=== PATIENT | male | born 1950 | race Caucasian/White ===

== ENCOUNTER → 2018-07-20 08:43 | Outpatient (CLI) | payer OTHER, SELFPAY ==
--- NOTE | 2018-07-20 | DI.RAD.S_ITS ---
PROCEDURE: FL KNEE INJECTION MR/CT RT INDICATIONS: Unspecified internal derangement of right knee TECHNIQUE: The indications, alternatives, benefits, risks, and complications of the procedure were explained to the patient. Written informed consent was obtained and placed in the chart. The knee was examined fluoroscopically, and a site chosen for knee joint injection. The skin was prepped and draped in a sterile fashion, and 1% Lidocaine infiltrated from the skin down to the articular surface. A hypodermic needle was then introduced into the joint and iodinated contrast media was instilled to confirm the intra-articular needle tip placement. This was followed by approximately 50 mL dilute solution of a gadolinium containing MR contrast agent. The needle was removed and a bandage was applied. An Jorge wrap was then applied around the knee joint to keep the contrast from collecting in the suprapatellar recess. The patient experienced no complications throughout the procedure and left the fluoroscopic suite in no apparent distress. FINDINGS: Single fluoroscopic spot image demonstrates intra-articular location to injected iodinated contrast. IMPRESSION: Successful fluoroscopically guided administration of dilute Gadolinium solution into the knee joint for MR arthrogram. Dictated by: Roberth Richter M.D. on 07/20/2018 at 12:02 Approved by: Roberth Richter M.D. on 07/20/2018 at 12:02
--- NOTE | 2018-07-20 | DI.MRI.S_ITS ---
PROCEDURE: MR KNEE RT W CON INDICATIONS: Unspecified internal derangement of right knee TECHNIQUE: After the administration of 50 mL of dilute intra-articular Gadolinium contrast, sagittal T1 spin echo with fat saturation and PD fast spin echo with fat saturation, coronal T1 spin echo with and without fat saturation, coronal T2 fast spin echo with fat saturation, axial PD fast spin echo with fat saturation through the knee. COMPARISON: None. FINDINGS: Image quality: Excellent. Menisci: Lateral meniscus appears grossly intact, with mild myxoid degeneration. There is very little medial meniscal body substance identified suggestive of macerated tear versus postoperative changes. No definite intrasubstance tear linear signal intensity within the anterior and posterior horn remnants to suggest recurrent tear. Cruciate ligaments: Marked thickening of the anterior cruciate ligament with internal heterogeneous signal changes. The posterior cruciate ligament appears intact. Medial structures: The medial collateral ligament appears intact. The posterior oblique ligament, semimembranosus tendon insertions, oblique popliteal ligament, and meniscocapsular junction appear intact. Visualized portions of the pes anserinus tendons appear normal. No abnormal bursal fluid. Lateral structures: The lateral collateral ligament, long and short heads of the biceps femoris tendon appear intact. The popliteus tendon appears normal; the popliteofibular ligament appears intact. The posterosuperior and anteroinferior popliteomeniscal fascicles appear intact. The arcuate and fabellofibular ligaments appear intact around the lateral inferior geniculate artery. Iliotibial band appears normal. Anterior structures: The quadriceps tendon appears intact. There is diffuse patellar tendinopathy with adjacent soft tissue edema. Patellar alignment is normal. No femoral trochlear dysplasia or ventral trochlear prominence. No edema in the infrapatellar fat pad. Bone and cartilage: No focal marrow contusion or discrete low signal fracture line. Within the medial compartment, there are areas of focal -thickness loss of the femoral and tibial articular cartilage Within the lateral compartment, diffuse partial thickness loss of the femoral articular cartilage. There is also partial-thickness 2 mm areas of central tibial articular cartilage loss. Within the patellofemoral compartment, diffuse partial thickness loss of the femoral trochlear and patellar articular cartilage. Joint space: Virgen's cyst measuring 5-6 cm. No definite intra-articular loose bodies identified. IMPRESSION: Poor visualization of the medial meniscal body presumably postoperative changes versus chronic macerated tear. No definite recurrent meniscal tear identified. Marked thickening and internal signal changes involving the anterior cruciate ligament suggestive of chronic partial rupture/sprain versus advanced degree degeneration. Please correlate with clinical exam findings. Diffuse patellar tendinopathy with adjacent soft tissue edema. Severe degenerative joint disease, most pronounced within the medial compartment where there are areas of full-thickness articular cartilage loss. Virgen's cyst. Dictated by: Roberth Richter M.D. on 07/20/2018 at 13:48 Approved by: Roberth Richter M.D. on 07/20/2018 at 14:03
== END ==
PROVIDERS: Family Provider Family Medicine; PCP Family Medicine; Visit Provider Orthopaedic Surgery
DX: M23.91 Unspecified internal derangement of right knee (principal); M67.863 Other specified disorders of tendon, right knee; M25.461 Effusion, right knee; M17.11 Unilateral primary osteoarthritis, right knee; M71.21 Synovial cyst of popliteal space [Baker], right knee
CPT/HCPCS: 27369; 73722; 77002

== ENCOUNTER 2019-01-23 06:06 | Day surgery (SDC) | payer OTHER, SELFPAY ==
[2019-01-03 13:45] VITALS: BMI 27.1
[2019-01-23] VITALS (13 sets, daily range): BP systolic 102–140; BP diastolic 61–82; PULSE 63–80; RESP 12–20; TEMP 36.2–36.9; O2SAT 93–100; BMI 26.8
--- NOTE | 2019-01-23 06:31 | DI.RAD.S_ITS ---
PROCEDURE: XR KNEE RT 1TO2V INDICATIONS: right tKA TECHNIQUE: 2 view(s) of the knee acquired. COMPARISON: None. FINDINGS: Bones: Patient is status post knee joint arthroplasty. Hardware components are in expected positions. Visualized bony structures are intact. Soft tissues: Overlying postoperative changes are noted. IMPRESSION: Status post right total knee arthroplasty. Dictated by: Valorie Aguilera M.D. on 01/23/2019 at 11:19 Approved by: Valorie Aguilera M.D. on 01/23/2019 at 11:19
[2019-01-23] MEDS: LACTATED RINGERS 1,000 ML 42 ML IV (07:00)
[2019-01-23] MEDS: PREGABALIN 75 MG CAPSULE PO (07:07)
[2019-01-23] MEDS: ACETAMINOPHEN 325 MG TABLET 975 MG PO (07:07)
[2019-01-23] MEDS: CELECOXIB 200 MG CAPSULE PO (07:08)
--- NOTE | 2019-01-23 07:39 | PM.PREOP ---
Pre-operative Note Interval Note History & Physical reviewed/Exam performed by Physician: Yes Changes to H&P: No
--- NOTE | 2019-01-23 07:40 | P.OP_ITS ---
Operative Date/Time/Diagnoses Date of procedure: 01/23/19 Time of procedure: 09:17 Pre-op diagnosis: Right knee osteoarthritis Post-op diagnosis: same Procedure & Clinicians Procedure: Right total knee arthroplasty Same procedure as scheduled: Yes Indications: The patient presents today for total knee arthroplasty after failure of conservative treatment. The nature of the procedure including the risks and benefits, alternatives, postoperative course and expected outcome were discussed and all questions answered. Consent was obtained. Operative site confirmed and marked. Surgeon: Ross Mosley Patient Services Clerk: Yonatan Guzman Anesthesia Type: General, Peripheral nerve block and Local Operative Notes Findings: Severe osteoarthritis with mild valgus alignment. Closure Type: primary Specimen(s): none sent Prosthetic devices, grafts, tissues, transplants, or devices: Velez [employer]hew Phyllis BCS: 7 femoral component, 7 tibial component, 9 mm BCS polyethylene tray and 32 x 9 mm round patella Applied: implant(s) Estimated Blood Loss (mL): 10 Blood products transfused: none Tourniquet time (min): 51 Procedure in detail: The patient was taken to the operative suite and placed under general anesthesia with an adductor nerve block. The patient was given prophylactic antibiotics prior to surgery. The patient was also given tranexamic acid, 1 g, just prior to surgery for postoperative hemostasis. The lateral knee was prepped and the joint injected with 20 mL of 1% Lidocaine with epinephrine. The knee was then prepped and draped in usual sterile fashion. The leg was exsanguinated with an Esmarch dressing and the tourniquet raised to 250 torr. A 15 cm anterior incision was made. Next a medial trivector arthrotomy was made. The extensor mechanism was marked to ensure accurate repair. Initial exposing dissection was carried out medially and laterally. The knee was then flexed and the intramedullary femoral guide teresa placed. The d istal femoral cut was made in 6 ? of valgus at the +1 position. The femoral size was measured and the appropriate cutting block was then placed and the anterior, posterior and chamfer cuts made. The intramedullary tibial alignment teresa was then placed. The guide was set to remove approximately 9 mm from the less affected medial side. The proximal tibial cut was then made with an oscillating saw. All meniscus and bony debris was then removed. Posterior femoral osteophytes removed with a curved osteotome. Flexion extension gaps were checked. No specific balancing was required other than routine exposure and removal of osteophytes. The soft tissues were then injected with a combination of 20 mL of half percent Marcaine with epinephrine and 20 mL of Exparel. The trial components were then placed. The knee was then extended and the patellar thickness was measured and a cut made removing approximately 9 mm of bone. The patella was then sized and drilled. Some excess lateral bone was excised and the patellofemoral ligament released. The knee went into full extension and flexion beyond 120?. There was excellent medial-lateral balance throughout motion. Patellar tracking was excellent. The trial components were removed and the knee was cleansed with Pulsavac irrigation and dried. The final components were cemented with high viscosity vacuum mixed bone cement with antibiotics. The joint was filled with a dilute Betadine solution. The knee was held in extension and the patellar clamped until the cement was adequately cured. The knee was then irrigated. The extensor mechanism was closed with 5 interrupted #1 Vicryl sutures and a running Quill suture at approximately 90 degrees of flexion. The joint was then injected with a combination of 1 g of tranexamic acid and 20 mL of quarter percent Marcaine with epinephrine. The subcutaneous tissue was closed with 2 0 Vicryl. The skin was closed with freddie and surgical adhesive. An Aquacel dressing and Jorge wrap were then applied. The patient tolerated the procedure well and was returned to recovery room in good condition. Complications: none Post-operative Condition: stable Disposition: PACU Plan for aftercare: [facility] protocol for total knee arthroplasty.
[2019-01-23] MEDS: CEFAZOLIN 2 GM/100 ML FROZ.PIGGY IV ×2 (07:52→16:05)
--- NOTE | 2019-01-23 07:55 | SUR.PREOP ---
Block start time [0738] . Monitoring initiated and maintained throughout procedure. Medications given per anesthesiologist. O2 given by his instructions. Patient remained stable throughout procedure, no adverse reactions noted. Block end time [0747]. Pt left room instable condition.
--- NOTE | 2019-01-23 08:20 | SUR.OPER ---
Supine on padded OR bed. Pillow under head, arms secured on padded armboards <90 degree abduction. Safety belt across torso. Non-operative leg secured with tape over blanket over lower leg. Operative leg secured in DeMayo/Tomas positioner. Foam padded brace at thigh of operative leg.
[2019-01-23] MEDS: BUPIVACAINE 0.25% W/ EPI (PF) 20 ML, TRANEXAMIC ACID 1,000 MG, SODIUM CHLORIDE 0.9% 10 ML INJ (08:26)
[2019-01-23] MEDS: BUPIVACAINE 0.25% W/ EPI (PF) 40 ML, BUPIVACAINE LIPOSOME 266 MG, SODIUM CHLORIDE 0.9% ... INJ (08:27)
[2019-01-23] MEDS: LIDOCAINE 1% W/EPI 20 ML INJ (08:28)
[2019-01-23] MEDS: SODIUM CHLORIDE IRRIG SOLUTION 250 ML, POVIDONE-IODINE SPONGE STICKS 1 APPLIC IRR (08:29)
[2019-01-23] MEDS: TRANEXAMIC ACID 1,000 MG VIAL 1000 MG IV (08:31)
[2019-01-23] MEDS: fentaNYL 100 MCG/2 ML INJ IV (09:53)
[2019-01-23] MEDS: ASPIRIN EC 81 MG TABLET PO ×2 (10:42→21:33)
[2019-01-23] MEDS: OXYCODONE IR 10 MG TABLET PO ×3 (10:42→21:40)
[2019-01-23] MEDS: LACTATED RINGERS 1,000 ML 125 ML IV ×2 (10:42→18:56)
[2019-01-23] MEDS: IBUPROFEN 400 MG TABLET PO ×4 (10:42→21:33)
[2019-01-23] MEDS: FOLIC ACID 1 MG TABLET PO ×2 (10:43→21:33)
--- NOTE | 2019-01-23 10:50 | CM.DANOTE ---
DCP: Case received, EMR reviewed and met with patient. , Kendra, also at bedside. Introduced self and role. Was able to obtain baseline activity level information from patient. DCP assessment completed with information currently available. Patient is a 68 year old male who admitted early this morning to the care of the orthopedic team. PCP: Dr. Knowles. Payer: confirmed: [facility]. Patient came to the hospital for a surgical procedure. He had a right total knee arthroplasty. Patient has had history of osteoarthritis. Met with patient in his room, he had recently come back from recovery post surgery. He is alert and oriented, , Kendra, present in room. Patient stated that he did not use a cane or walker prior to surgery, and it was sometimes hard for him to get up, especially if sitting on the floor. He is independent, resides in [place] with his . He has outpatient P.T. set up. P: DCP to continue to follow. Patient has not yet worked with P.T. team. As long as medically stable, and therapy clears him, he should be able to go home. Connie Mcmahan RN/Travel Registered Nurse [facility]
--- NOTE | 2019-01-23 11:07 | P.PCN_ITS ---
Procedures Date/Time Date of procedure: 01/23/19 Time of procedure: 07:31 Nerve Block Time out performed: Yes Local anesthetic used: lidocaine 1% (w/ epi 5mL + 15mL 0.5opivacaine) Location of anesthetic used: adductor canal Amount of anesthesia used (mL): 20 Nerve blocks: femoral (adductor canal) Procedure successful: Yes Patient tolerated procedure: well Complications: none Additional comments: Adductor canal block for post operative pain management. R/B discussed. Site marked. Consent verified/signed. Standard ASA monitors. NC O2. Chloroprep. Sterile technique. Femoral A/V/N identified medial mid thigh with US. Lidocaine skin wheal. 100mm x 21g Pajunk needle advanced with in-plane US guidance. Negative aspiration. LA injected medial and lateral to femoral artery. Negative aspiration throughout. No pain, no paresthesia with injection. VSS. Tolerated well. To OR.
--- NOTE | 2019-01-23 11:55 | PC.NURSE ---
1015 Pt arrived to room 211 via bed from PACU. Pt is awake, OX3, SCDs on ble. SL. denies pain at this time. at bedside. aquacel drsg to R knee/ bogdan wrap to site, ice pack to R knee as well. 140 IVF infusing now, Pt med for c/o pain, Pt taking in crackers w/the PO med.
--- NOTE | 2019-01-23 13:50 | PT.IIE ---
Current Diagnoses Unilateral primary osteoarthritis, right knee (01/23/19) Surgery Performed Operation Date: 01/23/19 07:45 Actual Procedures p Total Knee Arthroplasty(Right) - Ross Mosley MD Surgical History (Last Updated 01/03/19 @ 14:20 by María Weiss RN) H/O cardiac radiofrequency ablation (Acute ~2013) History of bilateral carpal tunnel release (Acute) Hx of appendectomy (Acute) Hx of arthroscopy of left knee (Acute) Hx of arthroscopy of right knee (Acute ~2013) Hx of bilateral cataract extraction (Acute) Hx of heart artery stent (Acute ~2013) Hx of repair of left rotator cuff (Acute ~2016) Hx of repair of right rotator cuff (Acute ~2008) Status post epidural steroid injection (Acute ~2016) Status post trigger finger release (Acute) Medical History (Last Updated 01/03/19 @ 14:25 by María Weiss RN) Arrhythmia (Acute) CAD (coronary artery disease) (Acute) Hammertoe of right foot (Acute) HLD (hyperlipidemia) (Acute) HTN (hypertension) (Acute) Ileus (Acute ~2004) Low back pain (Acute) Myocardial infarction (Acute ~2013) Osteoarthritis (Acute) PAF (paroxysmal atrial fibrillation) (Acute) Rheumatoid arthritis (Acute) Rupture of left biceps tendon (Acute) Ulcer (Acute) Physical Therapy Inpatient Evaluation/Re-Eval M1 PT/OT-IP Prior Functional Status Start: 01/23/19 17:02 Freq: NEEDED Status: Active Protocol: Document 01/23/19 13:50 AB (Rec: 01/23/19 17:20 AB [id number]) Medical Review Prior Functional Status Medical History Reviewed Yes Communication able to make needs known Mobility and Gait pt stated that he is independent with all mobilities and ambulation without AD Social History Household Members spouse Living Arrangements House Number of Floors (Floors) One Floor Number of Stairs To Enter/Railing? 2 steps with bilateral wide rails and can onlyb hold on to one rail at a time Home Environment Standard Height Toilet,Walk in Shower,Tub/Shower Home Equipment Front Wheel Walker,Straight Cane,Raised Toilet Seat w/ Armrests,Shower Seat with Backrest,Hand Held Shower,Grab Bars Near Toilet Additional Social History Comment pt stated that walk in shower is narrow and shower chair will not fit. pt has a tub shower with shower chair but pt has to climb to get in. M2 PT-IP Current Condition Start: 01/23/19 17:02 Freq: NEEDED Status: Active Protocol: Document 01/23/19 13:50 AB (Rec: 01/23/19 17:20 AB [id number]) Physical Therapy Current Condition Current Condition Evaluation Date 01/23/19 Treatment Diagnosis s/p R TKA; difficulty in walking Onset Date 01/23/19 Weight Bearing Status Weight Bearing Status Weight Bear as Tolerated Allowed Weight Bearing Amount (enter % WBAT RLE or #) (%) M3 PT-IP Subjective Start: 01/23/19 17:02 Freq: NEEDED Status: Active Protocol: Document 01/23/19 13:50 AB (Rec: 01/23/19 17:20 AB [id number]) Subjective Physical Therapy Visit Type Type Initial Evaluation Visit Start Time 13:50 Visit Stop Time 14:34 Total Visit Minutes 44 Number of DIRECTOR STARS Visits 0 Physical Therapy Visit Comments Patient Comments pt agreeable to do PT Therapy Pain Assessment Pain When Pain Assessed At Rest Pain Present Pain Present Pain Reported Location right knee Intensity 1 Scale Used increases to 2/10 with mobility Pain Management Techniques Apply Cold,Re-positioning, Timing of Activity with Medications M4 PT-IP Mobility and Gait Start: 01/23/19 17:02 Freq: NEEDED Status: Active Protocol: Document 01/23/19 13:50 AB (Rec: 01/23/19 17:20 AB [id number]) PT-Bed Mobility Assessment Supine to Sit Supine to Sit Standby Assistance Sit to Supine Sit to Supine Standby Assistance PT-Transfer Assessment Sit to and From Stand Sit to and from Stand Minimal Assistance,1 Person Assistance,Use of Upper Extremities Equipment Transfer Assistive Device Gait Belt,Front Wheeled Walker Orthotic/Prosthetic Devices or Brace: No Comments Mobility Comments pt completed supine to sit SBA . was able to maintain sitting on EOb SBA. completed sit to stand min A and cues. ambulated in room using FWW 20 ft x 2 requiring min A and cues. pt completed sit to supine SBA . positioned in bed. ice pack provided. call light and table placed within reach. Gait Assessment Gait Gait Assistance Required: Minimum Assistance,1 Person Assist Distance (Feet) 20 Able to Maintain Weight Bearing Status Yes During Gait Assistive Devices Assistive Device Gait Belt,Front Wheeled Walker Orthotic/Prosthetic Devices or Brace: No Gait Deviations General Gait Pattern Antalgic,Decreased Stride Length,Decreased Feet Clearance Factors Limiting Gait Function Factors Limiting Gait Function Decreased Activity Tolerance, Decreased Strength,Limited Range of Motion,Pain,Poor Balance,Poor Safety Awareness PT-Balance Assessment Sitting Balance and Reactions Static Sitting Balance Ability Good Dynamic Sitting Balance Ability Good Standing Balance and Reactions Static Standing Balance Ability Fair Dynamic Standing Balance Ability Fair Device Used FWW M5 PT-IP Objective Assessments Start: 01/23/19 17:02 Freq: NEEDED Status: Active Protocol: Document 01/23/19 13:50 AB (Rec: 01/23/19 17:20 AB [id number]) Orientation Orientation/Cognition Level of Alertness Alert Orientation Name,Place,Situation Language Function Ability No Deficits Noted Safety Awareness Understands Safety Issues Memory Description No Deficits Noted Gross Range of Motion Lower Extremity ROM Impairments R knee flexion: ~ 60 deg Strength Lower Extremity Strength Assessment Right Impaired Hip 4-/5 Knee 3+/5 Coordination Assessment Gross Coordination Gross Coordination WNL Sensation Assessment Sensation Gross Sensation WNL Muscle Tone Muscle Tone WNL Yes M6 PT-IP Treatment Start: 01/23/19 17:02 Freq: NEEDED Status: Active Protocol: Document 01/23/19 13:50 AB (Rec: 01/23/19 17:20 AB [id number]) Physical Therapy Treatment Exercises Exercises Quad Sets,Heel Slides Education Education Provided Precautions,Weight Bearing Status,Post-Op Packet,Safety M7 PT-IP Assessment and Plan Start: 01/23/19 17:02 Freq: NEEDED Status: Active Protocol: Document 01/23/19 13:50 AB (Rec: 01/23/19 17:20 AB [id number]) PT Summary Assessment and Plan Potential Rehabilitation Potential Good Status of Condition at Evaluation Stable Summary Impairments Pain,ROM,Strength,Balance, Coordination,Bed Mobility, Transfers,Gait,Activity Tolerance Assessment Summary pt requires min A and cues with mobility and will likely improve during hospital stay. pt plans to go home and spouse to assist him. will conduct caregiver training when appropriat as well as stair climbing training. pt stated that he is scheduled for outpt PT. Goals Bed Mobility Goal Standby Assistance Transfer Goal Standby Assistance,Front Wheeled Walker Gait Goal Standby Assistance,Front Wheel Walker Gait Distance 200 Other Goals up/down 2 steps with 1 rail SBA Days to Meet Goals 5 Frequency of Treatment Frequency Of Treatment Twice a Day Treatment Plan Physical Therapy Treatment Plan Bed Mobility Training,Transfer Training,Gait Training, Therapeutic Exercise,Balance Retraining,Post Op Education, Discharge Planning,Hot or Cold Pack,Neuromuscular Re-ed, Coordination Retraining,Manual Therapy Other Recommendations and Next Treatment ambulation, stair climbing, Focus caregiver training Recommendations To Nursing Amount of Assist Needed 1 Person Assist Discharge Recommendations PT Discharge Recommendations Home with Assistance, Outpatient PT
[2019-01-23] MEDS: ACETAMINOPHEN 325 MG TABLET 650 MG PO ×2 (14:18→21:34)
[2019-01-23] MEDS: ONDANSETRON 4 MG/2 ML INJ IV (16:44)
--- NOTE | 2019-01-23 17:56 | PC.NURSE ---
Addendum entered by Sapna Alston R.N. 01/23/19 23:43: Medicated for right knee pain 5/10. No change in neurovascular status this evening shift. Tele NSR. IV fluids infusing as ordered. BL calf scd's in place. Original Note: Pt awake, alert in bed @ beginning of shift. Spouse present in room. Medicated for pain by float RN, Sherrell. Pt does report to this quality analyst/technical writer feels slightly nauseated s/p oxycodone administration. Bowel tones present. Administered zofran as per emar. Pt takes diet well. States right knee pain 2/10 dull in nature following medication. Ice to right knee. Jorge wrap dry and intact. RLE supported on lengthwise pillow x 1. Palpable pedal pulses BL. BL calf scd's in place. Assist x 1 with walker to stand at bedside and void without difficulty. Has own I.S. at bedside as is [employer] pt.
[2019-01-23] MEDS: hydrOXYzine pamoate 25 MG CAPSULE PO (21:40)
[2019-01-24] MEDS: CEFAZOLIN 2 GM/100 ML FROZ.PIGGY IV (00:17)
[2019-01-24 00:30] VITALS: BP 100/58; PULSE 63; RESP 17; TEMP 36.5; O2SAT 96
[2019-01-24] MEDS: IBUPROFEN 400 MG TABLET PO ×4 (01:21→12:10)
[2019-01-24] MEDS: OXYCODONE IR 10 MG TABLET PO ×3 (01:25→12:09)
[2019-01-24] MEDS: LACTATED RINGERS 1,000 ML 125 ML IV (01:28)
[2019-01-24 04:54] VITALS: PULSE 63; RESP 18; TEMP 36.5; O2SAT 97
[2019-01-24 05:00] VITALS: BP 113/71
[2019-01-24 06:13] LABS: Hematocrit 34.6 % (41-53); Hemoglobin 12.4 g/dL (13.5-17.5)
[2019-01-24] MEDS: ACETAMINOPHEN 325 MG TABLET 650 MG PO (07:58)
[2019-01-24] MEDS: ASPIRIN EC 81 MG TABLET PO (07:58)
[2019-01-24] MEDS: FOLIC ACID 1 MG TABLET PO (07:58)
[2019-01-24 08:00] VITALS: BP 120/72; PULSE 66; RESP 18; TEMP 36.8; O2SAT 99
--- NOTE | 2019-01-24 09:17 | PT.IPTN ---
Current Diagnoses Unilateral primary osteoarthritis, right knee (01/23/19) Surgery Performed Operation Date: 01/23/19 07:45 Actual Procedures p Total Knee Arthroplasty(Right) - Ross Mosley MD Physical Therapy Treatment Note M2 PT-IP Current Condition Start: 01/23/19 17:02 Freq: NEEDED Status: Active Protocol: Document 01/23/19 13:50 AB (Rec: 01/23/19 17:20 AB [id number]) Physical Therapy Current Condition Current Condition Evaluation Date 01/23/19 Treatment Diagnosis s/p R TKA; difficulty in walking Onset Date 01/23/19 Weight Bearing Status Weight Bearing Status Weight Bear as Tolerated Allowed Weight Bearing Amount (enter % WBAT RLE or #) (%) M3 PT-IP Subjective Start: 01/23/19 17:02 Freq: NEEDED Status: Active Protocol: Document 01/24/19 08:53 JULIENNE (Rec: 01/24/19 09:42 JULIENNE [id number]) Subjective Physical Therapy Visit Type Type Treatment Note Visit Start Time 08:53 Visit Stop Time 09:17 Total Visit Minutes 24 Notes Treatment supervised by MERRY Garza. Number of PROCESS IMPROVEMENT ANALYST Visits 1 Physical Therapy Visit Comments Patient Comments pt agreeable to do PT Therapy Pain Assessment Pain When Pain Assessed During Mobility Pain Present Pain Present Pain Reported Location right knee Intensity 6 Scale Used Numeric (1 - 10) Pain Management Techniques Re-positioning,Timing of Activity with Medications M4 PT-IP Mobility and Gait Start: 01/23/19 17:02 Freq: NEEDED Status: Active Protocol: Document 01/24/19 08:53 JULIENNE (Rec: 01/24/19 09:42 JULIENNE [id number]) PT-Bed Mobility Assessment Supine to Sit Supine to Sit Standby Assistance,Head of Bed Elevated Sit to Supine Sit to Supine Standby Assistance Scooting Scooting to Edge of Bed Standby Assistance PT-Transfer Assessment Sit to and From Stand Sit to and from Stand Contact Guard Assistance,1 Person Assistance,Use of Upper Extremities Equipment Transfer Assistive Device Gait Belt,Front Wheeled Walker Orthotic/Prosthetic Devices or Brace: No Transfers Transfer Destination Chair Transfer Technique pt ambulated w/ FWW Transfer Ability Level of Assist Contact Guard Assistance,1 Person Assistance,Use of Upper Extremities Comments Mobility Comments Pt was in bed upon arrival from therapy. Was able to complete sup<>sit w/ HOB elevated and SBA and scooted to EOB SBA, no cues required. CGA for sit<>stand from bed w/ FWW. Pt demonstrated proper technique for stand<>sit in chair and reached back for chair and lowered down slow and controlled w/ CGA and no cues. Pt left in chair w/ all needs in reach. Gait Assessment Gait Gait Assistance Required: Standby Assistance,Contact Guard Assist,1 Person Assist Distance (Feet) 275 Able to Maintain Weight Bearing Status Yes During Gait Assistive Devices Assistive Device Gait Belt,Front Wheeled Walker Orthotic/Prosthetic Devices or Brace: No Gait Deviations General Gait Pattern Antalgic,Decreased Stride Length,Decreased Feet Clearance,Step-to Gait Factors Limiting Gait Function Factors Limiting Gait Function Decreased Activity Tolerance, Decreased Strength,Limited Range of Motion,Pain Comments Gait Comments Pt ambulated from room to stairs and back, totaling ~275 ft w/ FWW and SBA/CGA. Pt initially had step to gait pattern, but when cued for heel-toe walking and quad activation step through was demonstrated. Pts gait pattern progressed to symmetrical step length after ~100 ft. Pt showed proper usage of FWW. Verbalized that his pain was a 1 when just standing and weight bearing, but went up to a 6 after stairs and ambulation. Stair Climbing Assessment Evaluation Level of Assist On Stairs Standby Assistance,Contact Guard Assistance,1 Person Assistance Devices Stair Climbing Assistive Devices Left Railing,Right Railing Technique/Endurance Stair Climbing Direction Ascend and Descend Stair Climbing Technique Step to Step Number of Steps Climbed 3 Stair Climbing Set # Repetitions (reps) 2 Comments Stair Climbing Comments Pt was able to ascend/descend 3 steps x2 w/ SBA/CGA. During the first set, pt used R hand rail and successfully completed stairs, stated that he wanted to try the Left rail and he was able to complete stairs more easily. Min cues prior to stairs for nonsurgical LE acend first, and surgical descend first. Pts was not in attendance for gait and stair training, but pt was not in need of assistance. PT-Balance Assessment Sitting Balance and Reactions Static Sitting Balance Ability Good Dynamic Sitting Balance Ability Good Standing Balance and Reactions Static Standing Balance Ability Good Dynamic Standing Balance Ability Good Device Used FWW M5 PT-IP Objective Assessments Start: 01/23/19 17:02 Freq: NEEDED Status: Active Protocol: Document 01/23/19 13:50 AB (Rec: 01/23/19 17:20 AB [id number]) Orientation Orientation/Cognition Level of Alertness Alert Orientation Name,Place,Situation Language Function Ability No Deficits Noted Safety Awareness Understands Safety Issues Memory Description No Deficits Noted Gross Range of Motion Lower Extremity ROM Impairments R knee flexion: ~ 60 deg Strength Lower Extremity Strength Assessment Right Impaired Hip 4-/5 Knee 3+/5 Coordination Assessment Gross Coordination Gross Coordination WNL Sensation Assessment Sensation Gross Sensation WNL Muscle Tone Muscle Tone WNL Yes M6 PT-IP Treatment Start: 01/23/19 17:02 Freq: NEEDED Status: Active Protocol: Document 01/24/19 08:53 JULIENNE (Rec: 01/24/19 09:42 JULIENNE [id number]) Physical Therapy Treatment Exercises Exercises Heel Slides Education Education Provided Precautions,Weight Bearing Status,Post-Op Packet,Safety M7 PT-IP Assessment and Plan Start: 01/23/19 17:02 Freq: NEEDED Status: Active Protocol: Document 01/24/19 08:53 JULIENNE (Rec: 01/24/19 09:42 JULIENNE [id number]) PT Summary Assessment and Plan Potential Rehabilitation Potential Good Status of Condition at Evaluation Stable Summary Impairments Pain,ROM,Strength,Bed Mobility ,Transfers,Gait,Activity Tolerance Assessment Summary Pt showed improvements w/ both mobility and tolerance to activity as compared to last treatment. SBA for sup<>sit and scooting to EOB. CGA for sit<>stand and stand<>sit w/ FWW, no cues required. Ambulated ~275 ft w/ FWW and CGA, gait pattern improved w/ cues for quad activation, and symmetrical step length. Pt did 2x 3 steps safely w/ use of 1 handrail each time and step to step pattern w/ SBA/ CGA. Pts caregiver was not present, but pt did not need assistance when completing stairs. Pt reported that he felt safe and stable during ambulation and stairs. Pt plans to go home w/ spouse later today when medically stable. Goals Bed Mobility Goal Standby Assistance Transfer Goal Standby Assistance,Front Wheeled Walker Gait Goal Standby Assistance,Front Wheel Walker Gait Distance 200 Other Goals up/down 2 steps with 1 rail SBA Days to Meet Goals 5 Frequency of Treatment Frequency Of Treatment Twice a Day Treatment Plan Physical Therapy Treatment Plan Bed Mobility Training,Transfer Training,Gait Training, Therapeutic Exercise,Balance Retraining,Post Op Education, Discharge Planning,Hot or Cold Pack,Neuromuscular Re-ed, Coordination Retraining,Manual Therapy Other Recommendations and Next Treatment ambulation, stair climbing, Focus caregiver training Recommendations To Nursing Amount of Assist Needed 1 Person Assist Discharge Recommendations PT Discharge Recommendations Home with Assistance, Outpatient PT
--- NOTE | 2019-01-24 09:53 | PM.DS.1 ---
History of Present Illness History of Present Illness Date Patient Seen: 01/24/19 Time Patient Seen: 09:53 Chief complaint: [id number] RT TKA *OPB* Narrative: Patient's pain is well controlled. Denies fever chills. No nausea vomiting. Patient did well with physical therapy. Patient's is home to assist him. Discharge Providers Provider Discharge Date: 01/24/19 Primary care physician: Mayuri Knowles MD Consults: 01/23/19 10:17 Consult to Discharge Planning Routine Comment: Consult to Physical Therapy Evaluate & Treat Comment: Physician Instructions: postop TKA protocol Consult to Respiratory Therapy Evaluate & Treat Comment: Physician Instructions: Evaluate and treat Discharge provider: Yonatan Guzman PA-C Summary Hospital Course Discharge Diagnosis: Status post right total knee arthroplasty secondary to severe right knee osteoarthritis Hospital Course: [place] [address] Operative Note Patient: Rolando Gunn LMR#: [id number] : 8Acct:[id number] Age/Sex: 68 / M Date of Service: 01/23/19 Provider: Ross Mosley MD Operative Date/Time/Diagnoses Date of procedure: 01/23/19 Time of procedure: 09:17 Pre-op diagnosis: Right knee osteoarthritis Post-op diagnosis: same Procedure & Clinicians Procedure: Right total knee arthroplasty Same procedure as scheduled: Yes Indications: The patient presents today for total knee arthroplasty after failure of conservative treatment. The nature of the procedure including the risks and benefits, alternatives, postoperative course and expected outcome were discussed and all questions answered. Consent was obtained. Operative site confirmed and marked. Surgeon: Ross Mosley [employer] Commanding Officer: Yonatan Guzman Anesthesia Type: General, Peripheral nerve block and Local Operative Notes Findings: Severe osteoarthritis with mild valgus alignment. Closure Type: primary Specimen(s): none sent Prosthetic devices, grafts, tissues, transplants, or devices: [employer]hew Phyllis BCS: 7 femoral component, 7 tibial component, 9 mm BCS polyethylene tray and 32 x 9 mm round patella Applied: implant(s) Estimated Blood Loss (mL): 10 Blood products transfused: none Patient admitted to the hospital for right total knee arthroplasty. Patient consented to the same. Patient taken to the operating room yesterday underwent right total knee arthroplasty. Patient back in his room recovering well as in stable condition. Patient worked with physical therapy. Patient able to urinate on his own. Patient will be discharged home today in stable condition. Patient's is home to assist him. Status at Discharge Cognitive/behavioral status at discharge: confused and at baseline, oriented Functional status at discharge: uses cane/walker Overall status at discharge: patient is progressing back to baseline Time Spent with Patient Time spent: Less than 30 minutes Exam Vital Signs (past 8 hours): - 01/24/19 04:54 01/24/19 05:00 01/24/19 08:00 Temperature 97.7 F 98.2 F Pulse Rate 63 66 Respiratory Rate 18 18 Blood Pressure 113/71 120/72 Pulse Oximetry 97 99 Oxygen Delivery Method Room Air Oxygen Flow Rate 0 Objective Labs Result Diagrams: 01/24/19 06:00 Labs: Laboratory Results - last 24 hr 01/24/19 06:00 Hgb 12.4 L Hct 34.6 L Discharge Plan Discharge Plan Patient Disposition: Home Discharge Med Rec/Prescriptions Prescriptions: New aspirin 81 mg Tablet,Delayed Release (Dr/Ec) 81 mg PO BID Qty: 60 RF: 0 hydroxyzine pamoate 25 mg Capsule 25 mg PO Q6HR PRN (Reason: Nausea) Qty: 30 RF: 1 oxycodone 5 mg tablet 5 mg PO Q3H PRN (Reason: pain) Qty: 60 RF: 0 Continued ferrous sulfate [iron] 325 mg (65 mg iron) Tablet 325 mg PO DAILY RF: 0 folic acid 1 mg Tablet 1 mg PO BID RF: 0 Repatha SureClick 140 mg/mL Pen Injector 140 mg SUBCUT Q2W RF: 0 methotrexate 2.5 mg/mL Solution 15 mg PO QWEEK RF: 0 Xeljanz 10 mg Tablet 5 mg PO BID RF: 0 Discontinued aspirin 81 mg Tablet,Delayed Release (Dr/Ec) 81 mg PO DAILY RF: 0 Follow up/Referrals: Ross Mosley MD [Physician] - (1 wk) Discharge Orders: Discharge (Order); Ordered 01/24/19 Ordered By: Yonatan Guzman Provider Discharge Instructions Diet: Diet as Tolerated Activity: WBAT Cold/Heat Therapy: ice as needed Skin/Wound/Dressing Care Report to your healthcare provider any signs of infection, such as:: chills, fever, increased pain, unusual drainage and unusual redness Dressing: keep clean and dry Other wound treatment: per [facility] Discharge Data Primary Care Provider: Mayuri Knowles Attending Provider: Ross Mosley VTE Deep Vein Thrombosis/Pulmonary Embolism Present on Admission: No
--- NOTE | 2019-01-24 09:55 | PM.DS.1 ---
History of Present Illness History of Present Illness Chief complaint: [id number] RT TKA *OPB* Narrative: Patient's pain is well controlled. Denies fever chills. No nausea vomiting. Patient did well with physical therapy. Patient's is home to assist him. Discharge Providers Provider Discharge Date: 01/24/19 Primary care physician: Mayuri Knowles MD Consults: 01/23/19 10:17 Consult to Discharge Planning Routine Comment: Consult to Physical Therapy Evaluate & Treat Comment: Physician Instructions: postop TKA protocol Consult to Respiratory Therapy Evaluate & Treat Comment: Physician Instructions: Evaluate and treat Discharge provider: Yonatan Guzman PA-C Exam Vital Signs (past 8 hours): - 01/24/19 04:54 01/24/19 05:00 01/24/19 08:00 Temperature 97.7 F 98.2 F Pulse Rate 63 66 Respiratory Rate 18 18 Blood Pressure 113/71 120/72 Pulse Oximetry 97 99 Oxygen Delivery Method Room Air Oxygen Flow Rate 0 Narrative Exam Narrative: 68-year-old male standing at bedside in no apparent distress. Right knee dressing is clean, dry and intact. Neurovascular status is intact distally. Objective Labs Result Diagrams: 01/24/19 06:00 Labs: Laboratory Results - last 24 hr 01/24/19 06:00 Hgb 12.4 L Hct 34.6 L Discharge Plan Discharge Plan Patient Disposition: Home Discharge Med Rec/Prescriptions Prescriptions: New aspirin 81 mg Tablet,Delayed Release (Dr/Ec) 81 mg PO BID Qty: 60 RF: 0 hydroxyzine pamoate 25 mg Capsule 25 mg PO Q6HR PRN (Reason: Nausea) Qty: 30 RF: 1 oxycodone 5 mg tablet 5 mg PO Q3H PRN (Reason: pain) Qty: 60 RF: 0 Continued ferrous sulfate [iron] 325 mg (65 mg iron) Tablet 325 mg PO DAILY RF: 0 folic acid 1 mg Tablet 1 mg PO BID RF: 0 Repatha SureClick 140 mg/mL Pen Injector 140 mg SUBCUT Q2W RF: 0 methotrexate 2.5 mg/mL Solution 15 mg PO QWEEK RF: 0 Xeljanz 10 mg Tablet 5 mg PO BID RF: 0 Discontinued aspirin 81 mg Tablet,Delayed Release (Dr/Ec) 81 mg PO DAILY RF: 0 Follow up/Referrals: Ross Mosley MD [Physician] - (1 wk) Discharge Orders: Discharge (Order); Ordered 01/24/19 Ordered By: Yonatan Guzman Provider Discharge Instructions Diet: Diet as Tolerated Activity: WBAT Cold/Heat Therapy: ice as needed Skin/Wound/Dressing Care Report to your healthcare provider any signs of infection, such as:: chills, fever, increased pain, unusual drainage and unusual redness Dressing: keep clean and dry Other wound treatment: per [facility] Discharge Data Primary Care Provider: Mayuri Knowles Attending Provider: Ross Mosley VTE Deep Vein Thrombosis/Pulmonary Embolism Present on Admission: No
--- NOTE | 2019-01-24 13:23 | PC.NURSE ---
Discharge Pt states pain controlled with PO oxy and scheduled medications. Up with SBA and FWW. States he took all belongings with him. PIV and tele removed prior to d/c. D/c instructions provided to pt and his . Aware of f/u apts with MD and to contact with any additional questions or concerns. Left in w/c with [employer] escort
== END 2019-01-24 13:25 | disposition home or self-care (01) ==
LOC: OR 06:09 → AC 06:13
PROVIDERS: Family Provider Family Medicine; PCP Family Medicine; Visit Provider Orthopaedic Surgery
PROC: 0SRC0JZ Replacement of Right Knee Joint with Synthetic Substitute, Open Approach (ICD-10-PCS; CPT 27447; principal; 2019-01-23 07:45)
DX: M17.11 Unilateral primary osteoarthritis, right knee (principal); M21.061 Valgus deformity, not elsewhere classified, right knee; G89.18 Other acute postprocedural pain
CPT/HCPCS: 27447; 36415; 64447; 73560; 85014; 85018; 97116; 97161; 97530; C1776; C9290; J0690; J1100; J2250; J2405; J2704; J3010